=== PATIENT | female | born 1960 | race Caucasian/White ===

== ENCOUNTER → 2020-12-20 | Outpatient (CLI) | payer OTHER ==
[~2020-12-20] MED LIST: ASA81BEC PO; GABAPENTIN600 M1 PO; LEVOTHYROXINE150 MCG PO; LORATAB; LORTAB 5 MG/5001 TA1; LYRICA 50 MG50 MG; MELOXICAM15 MG PO; MULTI VITAMIN1 EACH PO; NORCO 10-325 T1 EACH PO; NORCO 5-325 TA1 EACH PO; OPANA10 MG; PREMPHASE 0.621 EAC1; TRAZODONE HCL50 MG PO; VALIUM5 MG PO; VITAMIN B COMP1 EACH PO; VITAMIN C500 M2 PO; VITAMIN D3125 MC1 PO; VITAMIN E200 UNI1 PO; ZEGERID 20 MG1 EACH PO; ZINC50 MG PO; ZOCOR 20 MG TAB20 M1 PO
[2020-12-20 11:28] LABS: MCH 28.6 pg (26.0-34.0); MCHC 33.3 g/dL (28.0-37.0); MCV 85.8 fL (80.0-100.0); RBC 4.55 mil/uL (4.20-5.00); RDW 13.2 % (10.5-14.5); WBC 6.2 thou/uL (4.0-11.0)
[2020-12-20 11:36] LABS: URINE BILIRUBIN NEGATIVE (Negative); URINE BLOOD NEGATIVE (Negative); URINE CLARITY CLEAR; URINE COLOR YELLOW; URINE GLUCOSE-RANDOM* NEGATIVE (Negative); URINE KETONES NEGATIVE (Negative); URINE LEUKOCYTES-REFLEX NEGATIVE (Negative); URINE NITRITE-REFLEX NEGATIVE (Negative); URINE PROTEIN (DIPSTICK) NEGATIVE (Negative); URINE UROBILINOGEN 0.2 E.U./dl (0.2-1.0)
[2020-12-20 11:37] LABS: ALBUMIN 3.9 g/dL (3.4-5.0); CALCIUM 8.6 mg/dL (8.5-10.1); CREATININE 0.9 mg/dL (0.6-1.0)
[2020-12-20 11:44] LABS: INR 0.98; PROTIME 10.7 Seconds (10.5-12.1)
--- NOTE | 2020-12-20 12:57 | EKG ---
[address] [address] ELECTROCARDIOGRAM REPORT Name: ANDREW GARCIA [facility] [id number] Admission: 12/20/20 Attend Phys: Marleny Gilmore DO Discharge: Date of : 64 Report #: [id number] [facility] Test Date: 2020-12-20 Test Time: 11:26:46 Pat Name: ANDREW GARCIA Department: Room: Gender: F [employer] Sales Rep: MONA : 1960 Requested By: Dominick Hutchinson Order Number: [id number] MD: Supa Vallejo Measurements Intervals [place] Rate: 68 P: 27 DC: 181 QRS: 24 QRSD: 82 T: 28 QT: 392 QTc: 417 Interpretive Statements Sinus rhythm Compared to ECG 08/22/2012 14:16:55 No significant changes Electronically Signed On 12-20-2020 12:57:09 CDT by Supa Vallejo [email or web address] <ELECTRONICALLY SIGNED> By: Supa Vallejo MD, [facility] 12/20/20 1257 [id number] Supa Vallejo MD, FACC /EPI
== END ==
LOC: PAC 10:00
PROVIDERS: Orthopaedic Surgery; ATTEND Student in an Organized Health Care Education/Training Program
DX: U07.1 COVID-19 (principal)

== ENCOUNTER 2021-01-17 09:47 | Observation (INO) | payer OTHER ==
[~2021-01-17] VITALS: Ht 165.1 cm; Wt 85.7 kg
--- NOTE | ~2021-01-17 | O ---
[facility] [place] [address] OPERATIVE REPORT Name: ANDREW GARCIAE Room #: 437-P [facility] M.RJama#: [id number] Admission: 01/17/21 Attend Phys: Dominick Hutchinson MD Discharge: Date of : 64 Report #: [id number] THIS REPORT FOR: cc: Andrew Bahena MD, Jennifer MD Abraham,Dominick Bryant MD ~ DOC #: [id number] Dominick Hutchinson MD DATE OF SERVICE: 01/17/2021 PREOPERATIVE DIAGNOSIS: Right knee osteoarthritis. POSTOPERATIVE DIAGNOSIS: Right knee osteoarthritis. PROCEDURE: Right total knee arthroplasty using Navio robotic assistance. SURGEON: Dominick Hutchinson MD. TOBACCO STEMMER: Charleen Sanz PA-C. INDICATION FOR TOBACCO STEMMER: Throughout the case extensive retraction, manipulation of the knee was required. This is supported by my distribution center assistant. ANESTHESIA: LMA with adductor canal block. IMPLANTS: [employer]hew size 5 Journey II BCS Oxinium femur, size 3 tibia, size 10 polyethylene and size 32 patella. TOURNIQUET TIME: 48 minutes. ESTIMATED BLOOD LOSS: 25 mL. COMPLICATIONS: None. SPECIMENS: None. CONDITION UPON LEAVING THE OPERATING ROOM: Stable. INDICATIONS FOR PROCEDURE: The patient is a 60-year-old female with right knee osteoarthritis. She had failed conservative measures for this and after discussion with her, she elected for right total knee arthroplasty. DESCRIPTION OF PROCEDURE: Risks, benefits, alternatives and complications were discussed in detail with the patient including but not limited to risk of anesthesia, risk of damage to nerves, arteries, blood vessels, risk for infection, bleeding, risk for continued knee pain and need for reoperation. [facility] [address] [place] [address] OPERATIVE REPORT Name: ANDREW GARCIA Room #: 437-P [facility] Prieto Vidal#: [id number] Admission: 01/17/21 Attend Phys: Dominick Hutchinson MD Discharge: Date of : 64 Report #: [id number] Informed consent was obtained from the patient. The right knee was appropriately marked in the preoperative holding area. IV Ancef was given for preoperative antibiotics. She was brought to the operating room and placed in supine position on the operating room table. LMA anesthesia was induced without complication. Tourniquet was placed on the right thigh. Right lower extremity was prepped and draped in normal sterile fashion. Timeout was performed properly identifying the patient and procedure as well as the instrumentation and implants. All in the operating room in agreement. Right lower extremity was exsanguinated, tourniquet was inflated. Tourniquet time was 48 minutes. Standard midline approach to the knee was made with 10 blade through the skin. Dissection was taken down sharply to the fascia and deep flaps were developed medially and laterally. Fresh 10 blade was used to make a medial parapatellar arthrotomy and the knee was inspected. There was severe tricompartmental osteoarthritis. ACL and PCL were removed sharply. Reference pins were placed in the femur and the tibia. The knee was then digitally mapped using the Powered [employer] Peak robotic system. Intraoperative plan was made. We sized the size 5 femur, size 3 tibia and a 10 spacer. After acceptance of the intraoperative plan, a distal femoral cut was made with Navio bur. Distal femoral cutting block was pinned in place and chamfer cuts were made. Attention was turned to the tibia. Remainder of the menisci removed with Bovie cautery. Tibial resection guide was pinned in place using the Navio for placement. Tibial resection was made. Flexion and extension gaps were checked, found to have good balance in flexion and extension both medially and laterally. Tibia sized, found to be a size 3. Size 3 tibial trial was placed, pinned and punched. Size 5 femoral trial was placed and the box cut was made. This was then trialed with a size 10 polyethylene. Size 10 polyethylene demonstrated good balance medially and laterally throughout range of motion of the knee, both digitally as well as manually. A 9 mm of bone was resected from the posterior surface of the patella and a size 32 patellar trial button was placed and the knee was taken through range of motion, found to be stable, found to have good patellar tracking. Trial components were removed. Bone ends were thoroughly irrigated with normal saline. A final size 3 tibia, size 5 Journey II BCS Oxinium femur and a size 32 patella were cemented in place using standard cementation techniques. While the cement cured, a periarticular injection consisting of morphine, ropivacaine, epinephrine, Toradol was placed around the knee joint capsule. After the cement cured, tourniquet was deflated. Hemostasis was obtained with Bovie cautery. Final size 10 polyethylene was placed. A gram of vancomycin was placed deep in the joint. Fascia was closed with 0 Vicryl. Skin was closed with 2-0 Vicryl, 3-0 Monocryl. Dermabond and a MUNA dressing was applied. The patient tolerated this procedure well and went to recovery room under care of Anesthesia postoperatively. Dominick Hutchinson MD [facility] [address] [address] OPERATIVE REPORT Name: ANDREW GARCIA Room #: 437-P [facility] Prieto Vidal#: [id number] Admission: 01/17/21 Attend Phys: Dominick Hutchinson MD Discharge: Date of : 64 Report #: [id number] By: [id number] Dominick Hutchinson MD /nt
[2021-01-17 11:43] VITALS: BP 143/85
[2021-01-17 19:37] VITALS: BP 112/69
--- NOTE | 2021-01-18 03:40 | NUR ---
RECEIVED CARE OF THIS PATIENT AT 1900. PATIENT ALERT AND ORIENTED X4. ON BEDREST TONIGHT D/T BLOCK IN LEG FOR KNEE SURGERY. HAS MUNA DRESSING ON R KNEE. TEDS, SCD'S ON CECIL. POLAR ICE TO R KNEE. IV PATENT IN LAC WITH FLUIDS INFUSING. C/O PAIN, MED GIVEN. SLEPT OFF AND ON DURING NIGHT.
[2021-01-18 04:08] VITALS: BP 125/65
[2021-01-18 08:48] VITALS: BP 110/58
--- NOTE | 2021-01-18 11:08 | NUR ---
ASSUMED PT CARE THIS AM. PT IS ALERT & ORIENTED X4. PT HAS IV SITE ON L AC. PT UP WITH ASSIST X1 WITH GAITBELT AND WALKER. PT HAD SURGERY YESTERDAY. PT HAS MUNA DRESSING, BILATERAL KNEE [employer]ES, SCD AND POLAR PACK. PT WORKED WITH PHYSICAL THERAPY THIS AM AND DID WELL HOWEVER FELT NAUSEA. GIVEN NAUSEA MEDICATION. PT TOLERATED DIET AND MEDICATION WELL. PT IS ON ROOM AIR. PT AT THE BEDSIDE. PT ON THE CHAIR WITH ALARM ON. WILL CONTINUE TO MONITOR PT. FOLLOW POC.
[2021-01-18 11:16] VITALS: BP 110/58
--- NOTE | 2021-01-18 12:51 | NUR ---
ASSESSMENT: CM REVIEWED CHART AND SPOKE WITH PT. PT IS S/P R TKA. PT REPORTS LIVING IN A HOUSE WITH HER . PT REPORTS THAT SHE HAS ABOUT 5 STEPS WITH HANDRAILS TO ENTER AND ANOTHER 5 STEPS WITH HANDRAILS ONCE SINDIE TO HER BEDROOM. PT REPORTS THAT SHE IS NORMALLY INDEPENDENT WITH ADLS BUT DOES HAVE CRUTCHES AT HOME FROM HER LAST SURGERY THAT SHE PLANS ON USING THIS TIME. PT REPORTS SHE HAS A SHOWER CHAIR IN THE SHOWER AND IS NORMALLY INDEPENDENT WITH ADLS. PT REPORTS THAT SHE HAS OUTPATIENT THERAPY ARRANGED AT [facility] STARTING TOMORROW. CM DISCUSSED ROLE. PT DOES NOT ANTICIPATE ANY NEEDS FROM CM. PT HAS BEEN CLEARED BY THERAPY TO D/C TODAY.
== END 2021-01-18 11:46 | disposition home or self-care (01) ==
LOC: OR → 4S 16:36 → OR 17:13 → 4S 01-18 11:46
PROVIDERS: ADMIT Orthopaedic Surgery; ATTEND Orthopaedic Surgery
DX: M16.12 Unilateral primary osteoarthritis, left hip (principal); Z79.899 Other long term (current) drug therapy
CPT/HCPCS: 50010; 50101; 50415; 50954; 51130; 51225; 51320; 52001; 52282; 53000; 53078; 53365; 54118; 56527; 56528; 57095; 57103; 57110; 57127; 57180; 62110; 62900; 64042; 70005